=== PATIENT | male | born 2000 | race Caucasian/White ===

== ENCOUNTER 2020-06-08 17:32 | Emergency (ER) | payer OTHER ==
[~2020-06-08] VITALS: Ht 180.3 cm; Wt 127.0 kg
[2020-06-08] MEDS ORDERED: MOBIC15 MG PO (17:41)
[2020-06-08] MEDS ORDERED: PERCOCET 5-3251 EACH PO (18:31)
[2020-06-08] MEDS ORDERED: BACITRACIN28.4 G1 TOP (18:31)
[2020-06-08 18:43] VITALS: BP 164/98
== END 2020-06-08 18:44 | disposition home or self-care (01) ==
LOC: M.ERS 17:32
DX: T20.10XA Burn of first degree of head, face, and neck, unspecified site, initial encounter (principal); T31.0 Burns involving less than 10% of body surface; X08.8XXA Exposure to other specified smoke, fire and flames, initial encounter; Y93.G2 Activity, grilling and smoking food; Y92.89 Other specified places as the place of occurrence of the external cause; Y99.8 Other external cause status

== ENCOUNTER 2020-09-26 08:23 | Emergency (ER) | payer OTHER ==
[~2020-09-26] VITALS: Ht 180.3 cm; Wt 113.4 kg
[~2020-09-26 08:23] MED LIST: BACITRACIN28.4 G1 TOP; MOBIC15 MG PO; PERCOCET 5-3251 EACH PO
[2020-09-26] MEDS ORDERED: PREDNISONE 20 M20 M1 PO (09:52)
[2020-09-26 12:02] VITALS: BP 135/77
== END 2020-09-26 12:03 | disposition home or self-care (01) ==
LOC: M.ERS 08:23
DX: T78.40XA Allergy, unspecified, initial encounter (principal); K13.79 Other lesions of oral mucosa; X58.XXXA Exposure to other specified factors, initial encounter

== ENCOUNTER 2021-02-02 12:33 | Emergency (ER) | payer BC ==
[~2021-02-02] VITALS: Ht 180.3 cm; Wt 120.2 kg
[~2021-02-02 12:33] MED LIST changes: +PREDNISONE 20 M20 M1 PO
[2021-02-02 13:03] LABS: URINE BILIRUBIN NEGATIVE (Negative); URINE BLOOD NEGATIVE (Negative); URINE CLARITY CLEAR; URINE COLOR YELLOW; URINE GLUCOSE-RANDOM NEGATIVE (Negative); URINE KETONES NEGATIVE (Negative); URINE LEUKOCYTES-REFLEX NEGATIVE (Negative); URINE NITRITE-REFLEX NEGATIVE (Negative); URINE PROTEIN NEGATIVE (Negative); URINE SPECIFIC GRAVITY >= 1.030 (1.005-1.030); URINE UROBILINOGEN 0.2 E.U./dl (0.2-1.0)
[2021-02-02 13:12] LABS: ABSOLUTE BASOPHILS 0.1 thou/uL (0.0-0.2); ABSOLUTE LYMPHOCYTES 2.2 thou/uL (0.8-5.3); ABSOLUTE MONOCYTES 0.6 thou/uL (0.0-1.2); ABSOLUTE NEUTROPHILS 6.9 thou/uL (1.6-8.1); BASOPHILS 0.5 %; EOSINOPHILS 0.5 %; HEMATOCRIT 51.8 % (42.0-52.0); HEMOGLOBIN 17.6 gm/dL (14.0-18.0); LYMPHOCYTES 22.6 %; MCH 29.2 pg (26.0-34.0); MCHC 34.1 g/dL (28.0-37.0); MCV 85.8 fL (80.0-100.0); MONOCYTES 6.5 %; MPV 8.8 fl. (7.2-11.1); NUCLEATED RBCS 0 /100WBC; PLATELET COUNT* 252 thou/uL (150-400); POLYS 69.9 %; RBC 6.03 mil/uL (4.50-6.00); RDW-CV 12.4 % (10.5-14.5); WBC 9.9 thou/uL (4.0-11.0)
[2021-02-02 13:20] LABS: CALCIUM 9.3 mg/dL (8.5-10.1); POTASSIUM 4.3 mmol/L (3.5-5.1)
[2021-02-02 13:24] LABS: TOTAL BILIRUBIN 0.3 mg/dL (<0.1-1.0); TOTAL PROTEIN 7.6 g/dL (6.4-8.2)
[2021-02-02] MEDS ORDERED: ZOFRAN ODT4 MG PO (14:16)
--- NOTE | 2021-02-02 14:33 | EKG ---
[place] [address] ELECTROCARDIOGRAM REPORT Name: LE,KATHRYN Amanda Room: [facility]#: [id number] Admission: 02/02/21 Attend Phys: Discharge: Date of : 89 Date of Service: 02/02/21 1310 Report #: [id number] THIS REPORT FOR: //name// [facility] ED Test Date: 2021-02-02 Test Time: 13:10:04 Pat Name: KATHRYN LE Department: Room: Gender: Radar Operator: : 2000 Requested By: Cony [place] Order Number: [id number] MD: Derrick Turner Measurements Intervals Elizabeth Rate: 88 P: 19 MD: 132 QRS: -45 QRSD: 105 T: 40 QT: 334 QTc: 404 Interpretive Statements Sinus arrhythmia LAD, consider left anterior fascicular block ST elevation suggests early repolarization No previous ECG available for comparison Electronically Signed On 02-02-2021 14:33:49 CDT by Derrick Turner [email or web address] <ELECTRONICALLY SIGNED> By: Derrick Turner MD, [facility] 02/02/21 1433 1310 1310 Derrick Turner MD, FAC /EPI
[2021-02-02 14:44] VITALS: BP 169/77
== END 2021-02-02 14:45 | disposition home or self-care (01) ==
LOC: M.ERS 12:33
PROVIDERS: Nurse Practitioner Family
DX: R11.2 Nausea with vomiting, unspecified (principal); R07.89 Other chest pain; Z20.822 Contact with and (suspected) exposure to COVID-19